=== PATIENT | female | born 1935 | race Two or more races ===

== ENCOUNTER 2024-08-24 13:56 | Inpatient (IN) | payer MEDICARE, OTHER ==
[~2024-08-24] VITALS: Ht 157.5 cm; Wt 61.6 kg
[2024-08-24 17:16] LABS: BASOPHILS % (AUTO) 0.7 % (0.0-2.0); EOSINOPHILS % (AUTO) 3.7 % (1.0-6.0); HEMATOCRIT 27.3 % (36-46); HEMOGLOBIN 8.9 g/dL (12.0-16.0); LYMPHOCYTES % (AUTO) 28.2 % (22.0-44.0); MEAN CORPUSCULAR HEMOGLOBIN 28.2 pg (26.0-34.0); MEAN CORPUSCULAR HGB CONC 32.6 G/dL (31.0-37.0); MEAN CORPUSCULAR VOLUME 87 fL (80-100); MONOCYTES # (AUTO) 0.5 K/uL (0.1-1.0); MONOCYTES % (AUTO) 7.4 % (2.0-9.0); NEUTROPHILS # (AUTO) 4.3 K/uL (1.8-7.7); PLATELET COUNT (AUTO) 183 K/uL (150-450); RED BLOOD CELL COUNT(AUTO) 3.16 MIL/uL (4.00-5.20); RED CELL DISTRIBUTION WIDTH 15.9 % (11.5-14.5); WHITE BLOOD COUNT (AUTO) 7.2 K/uL (4.5-11.0)
[2024-08-24 17:19] LABS: ANION GAP 11 mmol/L (8-16); CALCIUM, TOTAL 9.2 mg/dL (8.8-10.5); CARBON DIOXIDE 27 mmol/L (22-29); CHLORIDE 107 mmol/L (98-107); CREATININE 1.46 mg/dL (0.60-1.30); GLOMERULAR FILTR. RATE CALC 34 mL/min (>60); GLUCOSE,RANDOM 63 mg/dL (70-110); SODIUM SERUM 145 mmol/L (136-145); UREA NITROGEN, BLOOD 53 mg/dL (7-18)
[2024-08-24 17:29] LABS: LACTIC ACID 0.7 mmol/L (0.4-2.0)
[2024-08-24 18:17] LABS: APPEARANCE,URINE HAZY (CLEAR); BILIRUBIN,URINE NEGATIVE (NEGATIVE); COLOR,URINE LIGHT YELLOW (YELLOW); GLUCOSE, URINE (UA) NEGATIVE (NEGATIVE); KETONES,URINE TRACE mg/dL (NEGATIVE); LEUKOCYTE ESTERASE ,URINE LARGE (NEGATIVE); NITRATE,URINE NEGATIVE (NEGATIVE); OCCULT BLOOD,URINE TRACE (NEGATIVE); PROTEIN,URINE 300-600,SEE CONFIRM mg/dL (NEGATIVE); UROBILINOGEN,URINE <=1.0 mg/dL (<=1.0)
[2024-08-24 18:26] LABS: BACTERIA,URINE Many /HPF (None Seen); SQUAMOUS EPITHELIAL CELL,UR Few /LPF (None Seen); WBC,URINE 51-100 /HPF (0-5)
[2024-08-24 18:27] LABS: SULFOSALICYLIC ACID,URINE 1+ (Negative)
[2024-08-24] MEDS: CefTRIAXone SODIUM 2 GM in DEXTROSE 5%-WATER 50 ML IV ONE (18:45)
[2024-08-24] MEDS ORDERED: ONDANSETRON HCL 4 MG/2 ML VIAL IVP PRN (19:45)
[2024-08-24] MEDS: DEXTROSE 5%-LACTATED RINGERS 1,000 ML IV SCH (20:47)
[2024-08-24] MEDS: DEXTROSE 50%-WATER 25 GM/50 ML SYRINGE IVP ONE (20:50)
[2024-08-25] VITALS (7 sets, daily range): BP systolic 145–200; BP diastolic 44–56; PULSE 7–71; RESP 18–20; TEMP 98.1–98.2; O2SAT 95–100
[2024-08-25] MEDS: HEPARIN SODIUM,PORCINE 5,000 UNITS/ML VIAL SQ SCH
[2024-08-25 07:17] LABS: EOSINOPHILS % (AUTO) 5.1 % (1.0-6.0); HEMATOCRIT 28.1 % (36-46); HEMOGLOBIN 9.2 g/dL (12.0-16.0); LYMPHOCYTES # (AUTO) 1.6 K/uL (1.0-4.8); LYMPHOCYTES % (AUTO) 28.9 % (22.0-44.0); MEAN CORPUSCULAR HEMOGLOBIN 28.3 pg (26.0-34.0); MEAN CORPUSCULAR HGB CONC 32.7 G/dL (31.0-37.0); MEAN CORPUSCULAR VOLUME 87 fL (80-100); MONOCYTES # (AUTO) 0.4 K/uL (0.1-1.0); MONOCYTES % (AUTO) 6.5 % (2.0-9.0); NEUTROPHILS # (AUTO) 3.3 K/uL (1.8-7.7); NEUTROPHILS % (AUTO) 58.5 % (40.0-70.0); PLATELET COUNT (AUTO) 172 K/uL (150-450); RED BLOOD CELL COUNT(AUTO) 3.24 MIL/uL (4.00-5.20); RED CELL DISTRIBUTION WIDTH 15.5 % (11.5-14.5); WHITE BLOOD COUNT (AUTO) 5.6 K/uL (4.5-11.0)
[2024-08-25 07:28] LABS: ANION GAP 8 mmol/L (8-16); CALCIUM, TOTAL 9.5 mg/dL (8.8-10.5); CARBON DIOXIDE 29 mmol/L (22-29); CHLORIDE 108 mmol/L (98-107); CREATININE 1.36 mg/dL (0.60-1.30); GLOMERULAR FILTR. RATE CALC 37 mL/min (>60); GLUCOSE,RANDOM 124 mg/dL (70-110); POTASSIUM 4.1 mmol/L (3.5-5.1); SODIUM SERUM 145 mmol/L (136-145); UREA NITROGEN, BLOOD 46 mg/dL (7-18)
[2024-08-25] MEDS ORDERED: DEXTROSE 50%-WATER 25 GM/50 ML SYRINGE IVP PRN (08:15)
[2024-08-25] MEDS: INSULIN LISPRO 100 UNITS/ML SQ PRN (11:23)
[2024-08-25] MEDS ORDERED: CefTRIAXone 1 GM/DEXTROSE 50 ML IV SCH (13:00)
[2024-08-25] MEDS: MAGNESIUM OXIDE 400 MG TABLET PO ONE (14:31)
[2024-08-25] MEDS ORDERED: FERR325T27 PO (15:14)
[2024-08-25] MEDS ORDERED: ISOS60TA77 PO (15:14)
[2024-08-25] MEDS ORDERED: INSLAN SQ (15:14)
[2024-08-25] MEDS ORDERED: SENN-376 PO (15:14)
[2024-08-25] MEDS ORDERED: INSU100V42 SQ (15:14)
[2024-08-25] MEDS ORDERED: AMLO-258 PO (15:14)
[2024-08-25] MEDS ORDERED: LACT10SO85 PO (15:14)
[2024-08-25] MEDS ORDERED: GABA-1181 PO (15:14)
[2024-08-25] MEDS ORDERED: ASCO500 PO (15:14)
[2024-08-25] MEDS ORDERED: NEBI5TAB12 PO (15:14)
[2024-08-25] MEDS ORDERED: MINE133E26 PR (15:14)
[2024-08-25] MEDS ORDERED: CLON0.1T2 PO (15:14)
[2024-08-25] MEDS ORDERED: MAGN-169 PO (15:14)
[2024-08-25] MEDS ORDERED: BISA-151 PO (15:14)
[2024-08-25] MEDS ORDERED: LEVE-71 PO (15:14)
[2024-08-25] MEDS ORDERED: ASPI-1450 PO (15:14)
[2024-08-25] MEDS ORDERED: LIDO700A15 TP (15:14)
[2024-08-25] MEDS ORDERED: MELA5TAB40 PO (15:14)
[2024-08-25] MEDS ORDERED: ESCI-8 PO (15:14)
[2024-08-25] MEDS ORDERED: CRAN250C PO (15:14)
[2024-08-25] MEDS ORDERED: ROSU10TA72 PO (15:14)
[2024-08-25] MEDS ORDERED: MULT-248 PO (15:14)
[2024-08-25] MEDS ORDERED: CALC500T37 PO (15:14)
[2024-08-25] MEDS ORDERED: PANT-31 PO (15:14)
[2024-08-25] MEDS ORDERED: DOCU-385 PO (15:14)
[2024-08-25] MEDS ORDERED: DICL100G60 TP (15:14)
[2024-08-25] MEDS ORDERED: ESTR42.53 VG (15:14)
[2024-08-25] MEDS ORDERED: NITR0.4T52 SL (15:14)
[2024-08-25] MEDS ORDERED: IPRA3AMP23 NEB (15:14)
[2024-08-25] MEDS ORDERED: HYDR-4062 PO (15:14)
[2024-08-25] MEDS ORDERED: ALLO-97 PO (15:14)
[2024-08-25] MEDS ORDERED: ONDA-104 PO (15:14)
[2024-08-25] MEDS ORDERED: LOSA-381 PO (15:14)
[2024-08-25] MEDS ORDERED: CARB1TAB35 PO (15:14)
[2024-08-25] MEDS ORDERED: LORA0.5T20 PO (15:14)
[2024-08-25] MEDS ORDERED: ACET-2247 PO (15:14)
[2024-08-25] MEDS: CefTRIAXone 1 GM/DEXTROSE 50 ML IV SCH (18:04)
[2024-08-26 05:49] VITALS: BP 155/55; PULSE 70; RESP 18; TEMP 98.2; O2SAT 97
[2024-08-26 07:15] VITALS: BP 148/60; PULSE 68; RESP 18; TEMP 98.4; O2SAT 96
[2024-08-26 07:45] LABS: GLUCOMETER DEV NAME(LOC) 5S.1D; GLUCOSE,POINT OF CARE 99 MG/DL (70-110)
[2024-08-26 07:45] LABS: GLUCOMETER DEV NAME(LOC) 5S.1D; GLUCOSE,POINT OF CARE 159 MG/DL (70-110)
[2024-08-26 07:45] LABS: GLUCOMETER DEV NAME(LOC) 5S.1D; GLUCOSE,POINT OF CARE 148 MG/DL (70-110)
[2024-08-26 07:45] LABS: GLUCOMETER DEV NAME(LOC) 5S.1D; GLUCOSE,POINT OF CARE 251 MG/DL (70-110)
[2024-08-26 11:56] LABS: GLUCOMETER DEV NAME(LOC) 5S.1D; GLUCOSE,POINT OF CARE 191 MG/DL (70-110)
[2024-08-26 15:09] VITALS: BP_SYST 140; BP_SYST 180; BP_DIAS 50; BP_DIAS 64; PULSE 74; RESP 20; TEMP 98.4; O2SAT 97
[2024-08-26 15:16] LABS: BASOPHILS % (AUTO) 0.6 % (0.0-2.0); EOSINOPHILS % (AUTO) 1.6 % (1.0-6.0); HEMATOCRIT 33.2 % (36-46); HEMOGLOBIN 10.7 g/dL (12.0-16.0); LYMPHOCYTES # (AUTO) 0.9 K/uL (1.0-4.8); LYMPHOCYTES % (AUTO) 11.4 % (22.0-44.0); MEAN CORPUSCULAR HEMOGLOBIN 27.9 pg (26.0-34.0); MEAN CORPUSCULAR HGB CONC 32.3 G/dL (31.0-37.0); MEAN CORPUSCULAR VOLUME 87 fL (80-100); MONOCYTES # (AUTO) 0.4 K/uL (0.1-1.0); NEUTROPHILS # (AUTO) 6.4 K/uL (1.8-7.7); NEUTROPHILS % (AUTO) 81.4 % (40.0-70.0); PLATELET COUNT (AUTO) 190 K/uL (150-450); RED BLOOD CELL COUNT(AUTO) 3.83 MIL/uL (4.00-5.20); RED CELL DISTRIBUTION WIDTH 15.6 % (11.5-14.5); WHITE BLOOD COUNT (AUTO) 7.9 K/uL (4.5-11.0)
[2024-08-26] MEDS: SODIUM PHOSPHATE,MONO-DIBASIC 133 ML ENEMA PR PRN (15:18)
[2024-08-26] MEDS: PIPERACILLIN SODIUM/TAZOBACTAM 2.25 GM in DEXTROSE 5%-WATER 50 ML IV SCH (15:19)
[2024-08-26] MEDS: AmLODIPine BESYLATE 10 MG TABLET PO SCH (15:31)
[2024-08-26] MEDS: LOSARTAN POTASSIUM 25 MG TABLET PO SCH (15:31)
[2024-08-26 16:14] LABS: CALCIUM, TOTAL 9.6 mg/dL (8.8-10.5); CREATININE 1.32 mg/dL (0.60-1.30); POTASSIUM 4.2 mmol/L (3.5-5.1)
[2024-08-26 19:00] VITALS: BP 155/54; PULSE 66; RESP 18; TEMP 98.5; O2SAT 97
[2024-08-26 20:15] LABS: GLUCOMETER DEV NAME(LOC) 5S.1D; GLUCOSE,POINT OF CARE 164 MG/DL (70-110)
[2024-08-26] MEDS: ROSUVASTATIN CALCIUM 10 MG TABLET PO SCH (20:33)
[2024-08-26] MEDS: LevETIRAcetam 500 MG TABLET PO SCH (20:33)
[2024-08-26 21:10] LABS: GLUCOMETER DEV NAME(LOC) 5S.1D; GLUCOSE,POINT OF CARE 120 MG/DL (70-110)
[2024-08-26] MEDS ORDERED: SODIUM CHLORIDE 0.9% 500 ML IV ONE (22:04)
[2024-08-27 04:00] VITALS: BP 146/50; PULSE 69; RESP 18; TEMP 98.3; O2SAT 100
[2024-08-27 07:00] LABS: GLUCOMETER DEV NAME(LOC) 5S.1D; GLUCOSE,POINT OF CARE 136 MG/DL (70-110)
[2024-08-27] MEDS: ASPIRIN 81 MG CHEWABLE TABLET PO SCH (08:37)
[2024-08-27] MEDS: ESCITALOPRAM OXALATE 10 MG TABLET PO SCH (08:37)
[2024-08-27 08:38] VITALS: BP 157/98; PULSE 72; RESP 18; TEMP 98.2; O2SAT 98
[2024-08-27] MEDS: ISOSORBIDE MONONITRATE 60 MG ER TABLET PO SCH (08:38)
[2024-08-27 09:30] VITALS: BP 144/44; PULSE 72; RESP 18; TEMP 98.2; O2SAT 99
[2024-08-27 11:42] LABS: BASOPHILS % (AUTO) 1.3 % (0.0-2.0); EOSINOPHILS % (AUTO) 7.1 % (1.0-6.0); HEMATOCRIT 28.9 % (36-46); HEMOGLOBIN 9.2 g/dL (12.0-16.0); LYMPHOCYTES # (AUTO) 1.8 K/uL (1.0-4.8); LYMPHOCYTES % (AUTO) 29.3 % (22.0-44.0); MEAN CORPUSCULAR VOLUME 87 fL (80-100); MONOCYTES # (AUTO) 0.5 K/uL (0.1-1.0); MONOCYTES % (AUTO) 8.7 % (2.0-9.0); NEUTROPHILS # (AUTO) 3.3 K/uL (1.8-7.7); NEUTROPHILS % (AUTO) 53.6 % (40.0-70.0); PLATELET COUNT (AUTO) 187 K/uL (150-450); RED BLOOD CELL COUNT(AUTO) 3.31 MIL/uL (4.00-5.20); WHITE BLOOD COUNT (AUTO) 6.1 K/uL (4.5-11.0)
[2024-08-27 12:07] LABS: CALCIUM, TOTAL 8.8 mg/dL (8.8-10.5); CREATININE 1.56 mg/dL (0.60-1.30)
[2024-08-27] MEDS ORDERED: DOCU-412 PO (14:38)
[2024-08-27] MEDS ORDERED: PANT20TA18 PO (14:38)
[2024-08-27 15:12] VITALS: BP 121/43; PULSE 68; RESP 18; TEMP 98.1; O2SAT 96
[2024-08-27] MEDS: GABAPENTIN 300 MG CAPSULE PO SCH (16:14)
[2024-08-27 19:40] VITALS: BP 132/48; PULSE 60; RESP 18; TEMP 97.7; O2SAT 100
[2024-08-27] MEDS: HydrALAZINE HCL 25 MG TABLET PO SCH (20:23)
[2024-08-27 20:26] LABS: GLUCOMETER DEV NAME(LOC) 5S.1D; GLUCOSE,POINT OF CARE 122 MG/DL (70-110)
[2024-08-27 20:26] LABS: GLUCOMETER DEV NAME(LOC) 5S.1D; GLUCOSE,POINT OF CARE 170 MG/DL (70-110)
[2024-08-28 04:16] LABS: GLUCOMETER DEV NAME(LOC) 5S.1D; GLUCOSE,POINT OF CARE 94 MG/DL (70-110)
[2024-08-28 05:05] VITALS: BP 138/52; PULSE 75; RESP 18; TEMP 97.7; O2SAT 98
[2024-08-28 08:00] VITALS: BP 173/59; PULSE 78; RESP 18; TEMP 98.6; O2SAT 98
[2024-08-28] MEDS ORDERED: RINGERS SOLUTION,LACTATED 1,000 ML IV ONE (08:50)
[2024-08-28 11:26] LABS: GLUCOMETER DEV NAME(LOC) 6N.1B; GLUCOSE,POINT OF CARE 125 MG/DL (70-110)
[2024-08-28] MEDS: ACETAMINOPHEN 325 MG TABLET PO PRN (11:35)
[2024-08-28 11:46] LABS: GLUCOMETER DEV NAME(LOC) 5S.1D; GLUCOSE,POINT OF CARE 208 MG/DL (70-110)
[2024-08-28 11:57] LABS: BASOPHILS % (AUTO) 1.1 % (0.0-2.0); EOSINOPHILS % (AUTO) 5.5 % (1.0-6.0); HEMATOCRIT 28.9 % (36-46); HEMOGLOBIN 9.1 g/dL (12.0-16.0); LYMPHOCYTES # (AUTO) 1.4 K/uL (1.0-4.8); LYMPHOCYTES % (AUTO) 21.4 % (22.0-44.0); MEAN CORPUSCULAR HEMOGLOBIN 27.4 pg (26.0-34.0); MEAN CORPUSCULAR HGB CONC 31.5 G/dL (31.0-37.0); MEAN CORPUSCULAR VOLUME 87 fL (80-100); MONOCYTES # (AUTO) 0.5 K/uL (0.1-1.0); MONOCYTES % (AUTO) 7.2 % (2.0-9.0); NEUTROPHILS # (AUTO) 4.1 K/uL (1.8-7.7); NEUTROPHILS % (AUTO) 64.8 % (40.0-70.0); PLATELET COUNT (AUTO) 159 K/uL (150-450); RED BLOOD CELL COUNT(AUTO) 3.31 MIL/uL (4.00-5.20); RED CELL DISTRIBUTION WIDTH 16.1 % (11.5-14.5); WHITE BLOOD COUNT (AUTO) 6.4 K/uL (4.5-11.0)
[2024-08-28 12:19] LABS: CALCIUM, TOTAL 8.6 mg/dL (8.8-10.5); CREATININE 1.73 mg/dL (0.60-1.30); POTASSIUM 4.1 mmol/L (3.5-5.1)
[2024-08-28] MEDS: SODIUM CHLORIDE 0.9% 1,000 ML IV ONE (15:15)
[2024-08-28 15:17] VITALS: BP 114/53; PULSE 74; RESP 18; TEMP 98.2; O2SAT 97
[2024-08-28] MEDS ORDERED: AMOX400S55 PO (15:55)
[2024-08-28 19:25] VITALS: BP 134/43; PULSE 66; RESP 18; TEMP 97.9; O2SAT 96
[2024-08-28] MEDS: AMOX TR/POT CLAV 500 MG/125 MG TABLET PO SCH (20:08)
[2024-08-28 21:11] LABS: GLUCOMETER DEV NAME(LOC) 5S.1D; GLUCOSE,POINT OF CARE 165 MG/DL (70-110)
[2024-08-29 04:15] VITALS: BP 161/41; PULSE 67; RESP 18; TEMP 98.1; O2SAT 99
[2024-08-29 06:50] LABS: GLUCOMETER DEV NAME(LOC) 5S.1D; GLUCOSE,POINT OF CARE 95 MG/DL (70-110)
[2024-08-29 07:48] VITALS: BP 160/70; PULSE 77; RESP 19; TEMP 98.1; O2SAT 98
[2024-08-29 08:06] LABS: BASOPHILS % (AUTO) 1.1 % (0.0-2.0); EOSINOPHILS % (AUTO) 7.2 % (1.0-6.0); HEMATOCRIT 29.9 % (36-46); HEMOGLOBIN 9.1 g/dL (12.0-16.0); LYMPHOCYTES # (AUTO) 1.9 K/uL (1.0-4.8); LYMPHOCYTES % (AUTO) 28.9 % (22.0-44.0); MEAN CORPUSCULAR HEMOGLOBIN 27.4 pg (26.0-34.0); MEAN CORPUSCULAR HGB CONC 30.5 G/dL (31.0-37.0); MEAN CORPUSCULAR VOLUME 90 fL (80-100); MONOCYTES # (AUTO) 0.4 K/uL (0.1-1.0); MONOCYTES % (AUTO) 5.8 % (2.0-9.0); NEUTROPHILS # (AUTO) 3.7 K/uL (1.8-7.7); PLATELET COUNT (AUTO) 152 K/uL (150-450); RED BLOOD CELL COUNT(AUTO) 3.32 MIL/uL (4.00-5.20); RED CELL DISTRIBUTION WIDTH 16.4 % (11.5-14.5); WHITE BLOOD COUNT (AUTO) 6.6 K/uL (4.5-11.0)
[2024-08-29 08:16] LABS: CALCIUM, TOTAL 9.1 mg/dL (8.8-10.5); CREATININE 1.5 mg/dL (0.60-1.30); POTASSIUM 3.9 mmol/L (3.5-5.1)
[2024-08-29] MEDS ORDERED: HYDR25TA84 PO (15:37)
[2024-08-29 15:54] VITALS: BP 139/64; PULSE 87; RESP 19; TEMP 98.1; O2SAT 96
[2024-08-29 21:26] LABS: GLUCOMETER DEV NAME(LOC) 6N.1B; GLUCOSE,POINT OF CARE 118 MG/DL (70-110)
[2024-08-30 06:21] LABS: GLUCOMETER DEV NAME(LOC) 5S.1D; GLUCOSE,POINT OF CARE 147 MG/DL (70-110)
[2024-08-30 06:21] LABS: GLUCOMETER DEV NAME(LOC) 5S.1D; GLUCOSE,POINT OF CARE 141 MG/DL (70-110)
== END 2024-08-29 19:00 | DRG 70 ==
LOC: EMS 13:58 → EDH 19:43 → 4E 08-25 00:13
PROVIDERS: ADMIT Internal Medicine; ATTEND Internal Medicine
PROC: GZ52ZZZ Individual Psychotherapy, Cognitive (ICD-10-PCS; principal; 2024-08-26)
PROC: GZ56ZZZ Individual Psychotherapy, Supportive (ICD-10-PCS; 2024-08-26)
DX: G93.41 Metabolic encephalopathy (principal); N17.0 Acute kidney failure with tubular necrosis; N39.0 Urinary tract infection, site not specified; F02.83 Dementia in other diseases classified elsewhere, unspecified severity, with mood disturbance; F33.1 Major depressive disorder, recurrent, moderate; E44.0 Moderate protein-calorie malnutrition; Z16.24 Resistance to multiple antibiotics; I69.351 Hemiplegia and hemiparesis following cerebral infarction affecting right dominant side; I50.9 Heart failure, unspecified; G20.A1 Parkinson's disease without dyskinesia, without mention of fluctuations; E11.9 Type 2 diabetes mellitus without complications; I11.0 Hypertensive heart disease with heart failure; K21.9 Gastro-esophageal reflux disease without esophagitis; E78.00 Pure hypercholesterolemia, unspecified; E83.42 Hypomagnesemia; Z68.24 Body mass index [BMI] 24.0-24.9, adult; Z79.4 Long term (current) use of insulin; Z74.01 Bed confinement status; F29 Unspecified psychosis not due to a substance or known physiological condition
CPT/HCPCS: 71045; 71250; 74018; 76770; 80048; 81001; 81002; 82962; 83605; 83690; 83735; 84145; 85025; 87040; 87077; 87086; 87186; 99285; G0378; J0696; J1644; J2405; J2543; J7030; J7040; J7060; J7120; 36415-L1; 36415-TC